=== PATIENT | male | born 1980 | race Caucasian/White ===

== ENCOUNTER 2018-08-05 14:55 | Emergency (ER) | payer OTHER ==
[2018-08-05 18:48] LABS: HEPATITIS B SURFACE ANTIGEN NEGATIVE (NEGATIVE)
[2018-08-05 18:59] LABS: HIV 1&2 ANTIBODY NEGATIVE (NEGATIVE)
[2018-08-05 20:27] LABS: HEPATITIS C VIRAL ANTIBODY NEGATIVE (NEGATIVE)
== END 2018-08-05 18:08 | disposition home or self-care (01) ==
LOC: FTE 14:55
DX: F41.9 Anxiety disorder, unspecified (principal); Z72.51 High risk heterosexual behavior
CPT/HCPCS: 36415; 86703; 86803; 87340; 87591; 99283

== ENCOUNTER 2018-08-12 17:38 | Emergency (ER) | payer SELFPAY, OTHER | END 2018-08-12 18:41 | disposition left against medical advice (07) | LOC: FTE 17:38 | DX: Z53.21 Procedure and treatment not carried out due to patient leaving prior to being seen by health care provider (principal) ==

== ENCOUNTER 2018-08-13 13:18 | Emergency (ER) | payer OTHER | END 2018-08-13 15:30 | disposition home or self-care (01) | LOC: FTE 13:18 | DX: Z00.00 Encounter for general adult medical examination without abnormal findings (principal) | CPT/HCPCS: 99282; Z7502 ==